=== PATIENT | male | born 1945 | race Caucasian/White ===

== ENCOUNTER 2016-11-27 19:02 | Emergency (ER) | payer MEDICARE, OTHER ==
[~2016-11-27] VITALS: Ht 165.1 cm; Wt 75.0 kg
[2016-11-27 19:29] VITALS: BP 133/91; PULSE 82; RESP 18; TEMP 98.2; O2SAT 97
[2016-11-27] MEDS ORDERED: blood pressure PO (19:40)
--- NOTE | 2016-11-27 20:01 | PD ---
HPI Chief Complaint: Medical Clearance Time Seen by Provider: 19:56 Travel History International Travel<30 days: No Contact w/Intl Traveler<30days: No Traveled to known affect area: No History of Present Illness HPI 71-year-old white male presents to emergency department under a EXPARTE. According to the EXPARTE the patient has been consuming a large amount of alcohol. He is becoming increasingly agitated and has episodes of anger. There is allegations that he has not taking care of himself. He is not eating, showering or performing normal daily activities. The patient's states that she is concerned that he may be suffering from mental illness, Alzheimer's dementia or from substance abuse. She does not believe that he is able to take care of himself. The patient here states that he had been traveling to the [facility] [place] over the past week assisting people with their motorcycles. He states that after he would go home and consume alcohol. The patient denies any medical complaints. He states that his is upset regarding his alcohol consumption. 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 He denies any tobacco, drugs. He denies any medical complaints at this time. He does have a history of hypertension. Denies any suicidal or homicidal ideation. PFSH Past Medical History Narrative Medical Hypertension Hypertension: Yes Tetanus Vaccination: < 5 Years Past Surgical History Narrative Surgical Shoulder surgery 5 Social History Alcohol Use: Yes Tobacco Use: No Substance Use: No Allergies-Medications (Allergen,Severity, Reaction): Coded Allergies: No Known Allergies (Unverified , 11/27/16) Reported Meds & Prescriptions Reported Meds & Active Scripts Active Reported [blood pressure] PO DAILY Review of Systems Except as stated in HPI: all other systems reviewed are Neg Physical Exam Narrative GENERAL: Well-nourished, well-developed patient. SKIN: Warm and dry. HEAD: Normocephalic and atraumatic. EYES: No scleral icterus. No injection or drainage. ENT: No nasal drainage noted. Mucous membranes pink. Airway patent. NECK: Supple, trachea midline. Moves head freely without obvious discomfort. CARDIOVASCULAR: Regular rate and rhythm without murmurs, gallops, or rubs. RESPIRATORY: Breath sounds equal bilaterally. No accessory muscle use. GASTROINTESTINAL: Abdomen soft, non-tender, nondistended. EXTREMITIES: No cyanosis or edema. BACK: Nontender without obvious deformity. No CVA tenderness. NEURO: Patient is alert and oriented. no sensorimotor deficits. Nonfocal. Normal speech. PSYCH: No delusions. No auditory or visual hallucinations. Data Data Last Documented VS Vital Signs Date Time Temp Pulse Resp B/P Pulse Ox O2 Delivery O2 Flow Rate FiO2 11/27/16 19:29 98.2 82 18 133/91 97 Orders Complete Blood Count With Diff (11/27/16 19:46) Comprehensive Metabolic Panel (11/27/16 19:46) Psych Screen (11/27/16 19:46) Drug Screen, Random Urine (11/27/16 19:46) Alcohol (Ethanol) (11/27/16 19:46) Labs Laboratory Tests Test 11/27/16 11/27/16 20:40 21:00 White Blood Count 7.8 TH/MM3 Red Blood Count 4.72 MIL/MM3 Hemoglobin 13.8 GM/DL Hematocrit 41.1 % Mean Corpuscular Volume 87.2 FL Mean Corpuscular Hemoglobin 29.3 PG Mean Corpuscular Hemoglobin 33.6 % Concent Red Cell Distribution Width 13.8 % Platelet Count 300 TH/MM3 Mean Platelet Volume 6.8 FL Neutrophils (%) (Auto) 54.7 % Lymphocytes (%) (Auto) 29.3 % Monocytes (%) (Auto) 11.3 % Eosinophils (%) (Auto) 3.3 % Basophils (%) (Auto) 1.4 % Neutrophils # (Auto) 4.3 TH/MM3 Lymphocytes # (Auto) 2.3 TH/MM3 Monocytes # (Auto) 0.9 TH/MM3 Eosinophils # (Auto) 0.3 TH/MM3 Basophils # (Auto) 0.1 TH/MM3 CBC Comment DIFF FINAL Differential Comment Sodium Level 145 MEQ/L Potassium Level 4.1 MEQ/L Chloride Level 107 MEQ/L Carbon Dioxide Level 28.7 MEQ/L Anion Gap 9 MEQ/L Blood Urea Nitrogen 6 MG/DL Creatinine 0.72 MG/DL Estimat Glomerular Filtration 108 ML/MIN Rate Random Glucose 88 MG/DL Calcium Level 7.5 MG/DL Total Bilirubin 0.3 MG/DL Aspartate Amino Transf 31 U/L (AST/SGOT) Alanine Aminotransferase 26 U/L (ALT/SGPT) Alkaline Phosphatase 61 U/L Total Protein 6.5 GM/DL Albumin 3.0 GM/DL Ethyl Alcohol Level 236 MG/DL Urine Opiates Screen NEG Urine Barbiturates Screen NEG Urine Amphetamines Screen NEG Urine Benzodiazepines Screen NEG Urine Cocaine Screen NEG Urine Cannabinoids Screen NEG MDM Medical Decision Making Medical Screen Exam Complete: Yes Emergency Medical Condition: Yes Medical Record Reviewed: Yes Interpretation(s) Laboratory Tests Test 11/27/16 11/27/16 20:40 21:00 White Blood Count 7.8 TH/MM3 Red Blood Count 4.72 MIL/MM3 Hemoglobin 13.8 GM/DL Hematocrit 41.1 % Mean Corpuscular Volume 87.2 FL Mean Corpuscular Hemoglobin 29.3 PG Mean Corpuscular Hemoglobin 33.6 % Concent Red Cell Distribution Width 13.8 % Platelet Count 300 TH/MM3 Mean Platelet Volume 6.8 FL Neutrophils (%) (Auto) 54.7 % Lymphocytes (%) (Auto) 29.3 % Monocytes (%) (Auto) 11.3 % Eosinophils (%) (Auto) 3.3 % Basophils (%) (Auto) 1.4 % Neutrophils # (Auto) 4.3 TH/MM3 Lymphocytes # (Auto) 2.3 TH/MM3 Monocytes # (Auto) 0.9 TH/MM3 Eosinophils # (Auto) 0.3 TH/MM3 Basophils # (Auto) 0.1 TH/MM3 CBC Comment DIFF FINAL Differential Comment Sodium Level 145 MEQ/L Potassium Level 4.1 MEQ/L Chloride Level 107 MEQ/L Carbon Dioxide Level 28.7 MEQ/L Anion Gap 9 MEQ/L Blood Urea Nitrogen 6 MG/DL Creatinine 0.72 MG/DL Estimat Glomerular Filtration 108 ML/MIN Rate Random Glucose 88 MG/DL Calcium Level 7.5 MG/DL Total Bilirubin 0.3 MG/DL Aspartate Amino Transf 31 U/L (AST/SGOT) Alanine Aminotransferase 26 U/L (ALT/SGPT) Alkaline Phosphatase 61 U/L Total Protein 6.5 GM/DL Albumin 3.0 GM/DL Ethyl Alcohol Level 236 MG/DL Urine Opiates Screen NEG Urine Barbiturates Screen NEG Urine Amphetamines Screen NEG Urine Benzodiazepines Screen NEG Urine Cocaine Screen NEG Urine Cannabinoids Screen NEG Differential Diagnosis MDM: High Differential diagnoses: Schizophrenia, schizoaffective disorder, bipolar, anxiety, depression, adjustment reaction, mood disorder NOS, ODD, depressive disorder NOS, dementia, dementia with agitation, psychosis NOS, substance induced mood disorder, intermittent explosive disorder, Asperger syndrome, infection,electrolyte abnormality, malingering. Mental health screening discussed with the patient. Psychiatric screen ordered. Narrative Course Mental health screening discussed with the patient. Psychiatric screen ordered. The patient is been medically cleared. This is EXPARTE, medical clearance, alcohol intoxication Diagnosis Primary Impression: EXPARTE Additional Impressions: Medical clearance for psychiatric admission Alcohol intoxication Qualified Code: F10.120 - Alcohol intoxication, uncomplicated Condition: Stable Fermin Plummer Nov 27, 2016 20:01
[2016-11-27 20:50] LABS: AUTOMATED NEUTROPHIL # 4.3 TH/MM3 (1.8-7.7); BASOPHIL # 0.1 TH/MM3 (0-0.2); BASOPHIL % 1.4 % (0.0-2.0); EOSINOPHIL # 0.3 TH/MM3 (0-0.4); EOSINOPHIL % 3.3 % (0.0-4.0); HEMATOCRIT 41.1 % (39.0-51.0); HEMO FLAGS DIFF FINAL; LYMPH % 29.3 % (9.0-44.0); LYMPHOCYTE # 2.3 TH/MM3 (1.0-4.8); MEAN CELL VOLUME 87.2 FL (80.0-100.0); MEAN CORPUSCULAR HEMOGLOBIN 29.3 PG (27.0-34.0); MEAN CORPUSCULAR HGB CONC 33.6 % (32.0-36.0); MONO % 11.3 % (0.0-8.0); NEUT % 54.7 % (16.0-70.0); PLATELET COUNT 300 TH/MM3 (150-450); RED BLOOD COUNT 4.72 MIL/MM3 (4.50-5.90); RED CELL DISTRIBUTION WIDTH 13.8 % (11.6-17.2); WHITE BLOOD COUNT 7.8 TH/MM3 (4.0-11.0)
[2016-11-27 21:03] LABS: ANION GAP 9 MEQ/L (5-15); AST (GOT) 31 U/L (15-37); BICARBONATE 28.7 MEQ/L (21.0-32.0); BLOOD UREA NITROGEN 6 MG/DL (7-18); CHLORIDE 107 MEQ/L (98-107); GLOMERULAR FILTRATION RATE 108 ML/MIN (>89); POTASSIUM 4.1 MEQ/L (3.5-5.1); SODIUM (NA) 145 MEQ/L (136-145)
[2016-11-27 21:06] LABS: ALKALINE PHOSPHATASE 61 U/L (45-117); ALT (GPT) 26 U/L (12-78); TOTAL BILIRUBIN ADULT 0.3 MG/DL (0.2-1.0)
[2016-11-27 21:23] LABS: AMPHETAMINE, URINE NEG (NEG); BARBITURATES, URINE NEG (NEG); COCAINE, URINE NEG (NEG)
[2016-11-28 07:35] VITALS: BP 169/83; PULSE 72; RESP 16; TEMP 98.2; O2SAT 96
[2016-11-28 08:06] VITALS: BP 181/93; PULSE 73; RESP 18; TEMP 97.5; O2SAT 93
[2016-11-28 11:26] VITALS: BP 180/85; PULSE 71; RESP 18; O2SAT 93
[2016-11-28 11:31] VITALS: BP 180/86; PULSE 71; RESP 18; O2SAT 93
[2016-11-28 12:06] VITALS: BP 142/72; PULSE 80; RESP 20
--- NOTE | 2016-11-28 12:17 | PD ---
History of Present Illness Chief Complaint: Medical Clearance Time Seen by Provider: 11:30 Travel History International Travel<30 Days: No Contact w/Intl Traveler<30days: No Known affected area: No Legal Status Legal Status: Ex Parte Parry Act Signed By: Signed by [facility] Judge Shawanda Mccartychurch. Parry Act Comment: Signed by [facility] Judge Shawanda Bishoph. History of Present Illness: History of Present Illness HPI 71-year-old white male with no psychiatric history who presents to emergency department under a EXPARTE. According to the EXPARTE which was filed by his the patient has been consuming a large amount of alcohol and has not been caring for himself including not bathing and urinating on self. He is becoming increasingly agitated and has episodes of anger. The patient's states that she is concerned that he may be suffering from mental illness, Alzheimer's dementia or from substance abuse. EMR is reviewed. [place] previous contact with [facility] [place]. BAL when he presented to ED is 236. Patient is seen in J pod. He is awake, alert, dressed in [facility]. States it is November 16, 2016. he knows he is in the hospital and is able to explain the circumstances. His speech is clear. He is [place]. He has difficulty with word finding but is able to answer questions and provide information. There is no indication that he is experiencing any hallucinations, delusions or paranoia. there is no suicidal or homicidal ideation. His mood is anxious over being here. He acknowledges that he has been drinking for many years with a 6 year period of sobriety . He drinks most days but minimizes his use to 2 drinks per day " usually to go to sleep". He denies ever having any withdrawal symptoms. He talks about stopping his drinking " as of right now" as he is still very surprised that his had him brought to the hospital. PFSH Past Medical History Hypertension: Yes Tetanus Vaccination: < 5 Years Psychiatric History Psychiatric History Hx Psychiatric Treatment: Patient denies any psychiatric tx hx. History of Inpatient Treatment: No Guns or firearms in home: No Social History Born and raised in [facility] [place]. Moved to [place] in 2015. Retired george. Lives with his and they have been x 10 years. Hx Alcohol Use: Yes (BAL 236) Hx Tobacco Use: No Hx Substance Use: Yes Substance Use Type: Alcohol Hx of Substance Use Treatment: Yes Family Psychiatric History None reported Allergies-Medications (Allergen,Severity, Reaction): Coded Allergies: No Known Allergies (Unverified , 11/27/16) Reported Meds & Prescriptions Reported Meds & Active Scripts Active Reported [blood pressure] PO DAILY Review of Systems Except as stated in HPI: all other systems reviewed are Neg Exam Alert: Yes [place]: Person, Place, Date (November 16, 2016) Mood: Anxious Affect: Euthymic Speech: Clear, Logical Eye Contact: Normal Memory Intact: Comment (not formally tetsted) Hallucinations: Other (negative) Delusions: No Suicidal: Ideation (denies any) Homicidal: Ideation (denies any) Insight/Judgement poor. not impaired. MDM Medical Decision Making Medical Record Reviewed: Yes Assessment/Plan 71 year old male with history of alcohol dependence who is here under an EXPARTE . The patient with no hx of psychiatric treatment . He admits to drinking most days and reports his use age as 2 drinks. He has had a period of sobriety lasting 6 years. He is aware of AA. At this time he does not meet criteria for involuntary commitment in a psychiatric facility. The patient will be released to his home. Recommend AA as well as abstinence. I have attempted to contact his to inform her of Act in the future . No answer. Staff will continue to attempt to contact her Orders Complete Blood Count With Diff (11/27/16 19:46) Comprehensive Metabolic Panel (11/27/16 19:46) Psych Screen (11/27/16 19:46) Drug Screen, Random Urine (11/27/16 19:46) Alcohol (Ethanol) (11/27/16 19:46) Diet Regular Basic (11/28/16 Breakfast) Diet Regular Basic (11/28/16 Lunch) Results Vital Signs Date Time Temp Pulse Resp B/P Pulse Ox O2 Delivery O2 Flow Rate FiO2 11/28/16 12:06 80 20 142/72 11/28/16 11:31 71 18 180/86 93 11/28/16 11:26 71 18 180/85 93 11/28/16 08:06 97.5 73 18 181/93 93 Room Air 11/28/16 07:35 98.2 72 16 169/83 96 Room Air 11/27/16 19:29 98.2 82 18 133/91 97 Laboratory Tests Test 11/27/16 11/27/16 20:40 21:00 White Blood Count 7.8 Red Blood Count 4.72 Hemoglobin 13.8 Hematocrit 41.1 Mean Corpuscular Volume 87.2 Mean Corpuscular Hemoglobin 29.3 Mean Corpuscular Hemoglobin 33.6 Concent Red Cell Distribution Width 13.8 Platelet Count 300 Mean Platelet Volume 6.8 Neutrophils (%) (Auto) 54.7 Lymphocytes (%) (Auto) 29.3 Monocytes (%) (Auto) 11.3 Eosinophils (%) (Auto) 3.3 Basophils (%) (Auto) 1.4 Neutrophils # (Auto) 4.3 Lymphocytes # (Auto) 2.3 Monocytes # (Auto) 0.9 Eosinophils # (Auto) 0.3 Basophils # (Auto) 0.1 CBC Comment DIFF FINAL Differential Comment Sodium Level 145 Potassium Level 4.1 Chloride Level 107 Carbon Dioxide Level 28.7 Anion Gap 9 Blood Urea Nitrogen 6 Creatinine 0.72 Estimat Glomerular Filtration 108 Rate Random Glucose 88 Calcium Level 7.5 Total Bilirubin 0.3 Aspartate Amino Transf 31 (AST/SGOT) Alanine Aminotransferase 26 (ALT/SGPT) Alkaline Phosphatase 61 Total Protein 6.5 Albumin 3.0 Ethyl Alcohol Level 236 Urine Opiates Screen NEG Urine Barbiturates Screen NEG Urine Amphetamines Screen NEG Urine Benzodiazepines Screen NEG Urine Cocaine Screen NEG Urine Cannabinoids Screen NEG Diagnosis Primary Impression: Alcohol dependence with acute alcoholic intoxication Additional Impression: EXPARTE Psychiatrically Cleared: Yes Disposition: 01 DISCHARGE HOME Condition: Stable Problem Qualifiers Primary Impression: Alcohol dependence with acute alcoholic intoxication Qualified Code: F10.220 - Alcohol dependence with acute alcoholic intoxication , uncomplicated Maria Elena Payan ARN Nov 28, 2016 12:17
[2016-11-28 16:01] VITALS: BP 158/66; PULSE 68; RESP 20; O2SAT 96
== END 2016-11-28 17:15 | disposition home or self-care (01) ==
LOC: NEPB 19:02 → NEPJ 11-28 17:15
DX: Z04.8 Encounter for examination and observation for other specified reasons (principal); Z02.89 Encounter for other administrative examinations; F10.220 Alcohol dependence with intoxication, uncomplicated; I10 Essential (primary) hypertension
CPT/HCPCS: 80053; 80307; 85025; 99284